=== PATIENT | female | born 1995 | race Native Hawaiian/Other Pacific Islander ===

== ENCOUNTER 2022-09-16 07:54 | Outpatient (CLI) | payer BC, SELFPAY ==
[2022-09-16 14:00] LABS: Albumin* 4.3 g/dL (3.3-5.0); Chloride* 106 mmol/L (96-114); Sodium* 140 mmol/L (135-149)
[2022-09-16 14:01] LABS: Potassium* 4.6 mmol/L (3.6-5.1)
[2022-09-16 14:03] LABS: Alkaline Phosphatase* 76 U/L (40-150); Aspartate Amino Transferase* 20 U/L (12-35); Bilirubin Total* 0.6 mg/dL (0.1-1.5); Blood Urea Nitrogen* 9 mg/dL (5-24); Carbon Dioxide* 23 mmol/L (20-32); Creatinine* 0.6 mg/dL (0.5-1.5); Estimated Glomerular Filt Rate 125 ml/min; Glucose* 89 mg/dL (60-115); Total Protein* 7.1 g/dL (6.0-8.3)
[2022-09-16 14:04] LABS: Alanine Aminotransferase* 15 U/L (4-35); Calcium* 9.5 mg/dL (8.4-10.6)
== END 2022-09-16 07:55 | disposition home or self-care (01) ==
PROVIDERS: PCP Physician Assistant Medical; Visit Provider Physician Assistant Medical
DX: H81.10 Benign paroxysmal vertigo, unspecified ear (principal)
CPT/HCPCS: 80053; 84443